=== PATIENT | female | born 1975 | race Caucasian/White ===

== ENCOUNTER 2023-12-26 22:30 | Inpatient (IN) | payer OTHER, SELFPAY ==
[2023-12-26 20:00] VITALS: BP 121/74; PULSE 98; RESP 18; TEMP 36.6; O2SAT 100
[2023-12-27] MEDS: HaloperidoL 5 MG TABLET 10 MG PO ×2 (00:08→20:30)
[2023-12-27] MEDS: Nicotine Polacrilex 2 MG GUM 4 MG BUCCAL ×4 (00:08→19:23)
[2023-12-27] MEDS: busPIRone HCl 10 MG TABLET PO ×3 (00:08→20:30)
[2023-12-27] MEDS: Ibuprofen 400 MG TABLET PO ×4 (00:08→23:54)
[2023-12-27 01:08] VITALS: BMI 32.8
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
[2023-12-27] MEDS: Acetaminophen 325 MG TABLET 650 MG PO ×3 (01:38→20:30)
[2023-12-27] MEDS: traZODone HCL 50 MG TABLET PO ×2 (02:33→23:54)
[2023-12-27 08:00] VITALS: RESP 18
[2023-12-27] MEDS: Aspirin Enteric Coated 81 MG TABLET.DR PO (09:23)
--- NOTE | 2023-12-27 11:13 | HO.PM.IMCN ---
History of Present Illness Data of Consult Service Date: 12/27/23 Primary Care Provider: Sony Physician HPI Reason for consult: Medical management This is a 48-year-old female with pertinent history of CAD, tobacco use disorder, mixed hyperlipidemia who is admitted to inpatient psychiatry for decompensated psychiatric illness. Patient denies chest pain or shortness of breath at the time of my evaluation. She has no new complaints. States that she takes all her medications and is not in a mood to talk about her medical history. Review of Systems Constitutional: Constitutional: Reports no additional constitutional complaints Cardiovascular: Cardiovascular: Reports no additional cardiovascular complaints Respiratory: Respiratory: Reports no additional respiratory complaints Gastrointestinal: Gastrointestinal: Reports no additional gastrointestinal complaints Genitourinary: Genitourinary: Reports no additional female genitourinary complaints [facility] Medical History Mood disorder Tobacco use disorder Coronary artery disease Pertinent family history: No family history of early CAD Social History Household Members: Significant Other Household Members Other:: BOY FRIEND Housing: Apartment Do you presently have visiting nurse or other home services: No Patient Tobacco Use Status: Current everyday Tobacco user Tobacco use type: Cigarette Smoked in Last 30 Days: Yes e-Cigarette/Vaping Use: Never Used Patient Interested in Nicotine Replacement: Yes Patient Given Instructions on How to Stop Smoking: Yes Date Education Initiated: 12/27/23 Second Hand Smoke Exposure: Yes Use of substances other than those prescribed or required for medical reasons: Yes Substance Use Type: Crack/Cocaine Substance Use Frequency: Occasionally Last Used Substance: Unknown Currently Displaying Signs/Symptoms of Drug Intoxication Withdrawal: No Any prior treatment program specific to substance use: No Do you feel safe in your current relationship?: Yes Advance Directives: No Advance Directives Information Provided: No Recently lost weight without trying: No Nutrition Risks: No Nutritional Risk Patient : No : No Poor oral hygiene: No Meds Allergies Allergy/AdvReac Type Severity Reaction Status Date / Time No Known Allergies Allergy Verified 12/26/23 19:16 Active Medications: Current Medications Acetaminophen (Acetaminophen 325 Mg Tablet) 650 mg PO Q6H PRN PRN Reason: Headache/Pain Mild Scale (1-3) Last Admin: 12/27/23 01:38 Dose: 650 mg Al Hydroxide/Mg Hydroxide (Magnesium Hydrox/Alum Hydrox 30 Ml Oral.Susp) 30 ml PO Q6H PRN PRN Reason: Heartburn/Nausea Aspirin (Aspirin Enteric Coated 81 Mg Tablet.) 81 mg PO DAILY [facility] Last Admin: 12/27/23 09:23 Dose: 81 mg Atorvastatin Calcium (Atorvastatin Calcium 80 Mg Tablet) 80 mg PO BEDTIME [facility] Last Admin: 12/27/23 00:04 Dose: Not Given Buspirone HCl (Buspirone Hcl 10 Mg Tablet) 10 mg PO BID [facility] Last Admin: 12/27/23 09:22 Dose: 10 mg Clopidogrel Bisulfate (Clopidogrel Bisulfate 75 Mg Tablet) 75 mg PO DAILY [facility] Last Admin: 12/27/23 09:24 Dose: Not Given Divalproex Sodium (Divalproex Sodium 250 Mg Tablet.) 250 mg PO DAILY [facility] Last Admin: 12/27/23 09:24 Dose: Not Given Haloperidol (Haloperidol 5 Mg Tablet) 10 mg PO BEDTIME [facility] Last Admin: 12/27/23 00:08 Dose: 10 mg Hydroxyzine HCl (Hydroxyzine Hcl 25 Mg Tablet) 25 mg PO Q6H PRN PRN Reason: Anxiety Ibuprofen (Ibuprofen 400 Mg Tablet) 400 mg PO Q6H PRN PRN Reason: Pain, Moderate(Pain Scale 4-6) Last Admin: 12/27/23 09:23 Dose: 400 mg Lorazepam (Lorazepam 0.5 Mg Tablet) 0.5 mg PO DAILY PRN PRN Reason: Anxiety Magnesium Hydroxide (Milk Of Magnesia 30 Ml Oral.Susp) 30 ml PO DAILY PRN PRN Reason: Constipation Nicotine (Nicotine 21 Mg Patch.Td24) 21 mg TRANSDERMA DAILY PRN PRN Reason: nicotine cravings Nicotine Polacrilex (Nicotine Polacrilex 2 Mg Gum) 4 mg BUCCAL Q2H PRN PRN Reason: Nicotine Cravings Last Admin: 12/27/23 02:33 Dose: 4 mg Sertraline HCl (Sertraline Hcl 50 Mg Tablet) 50 mg PO BEDTIME [facility] Last Admin: 12/27/23 00:04 Dose: Not Given Trazodone HCl (Trazodone Hcl 50 Mg Tablet) 50 mg PO BEDTIME MRX1 PRN PRN Reason: Insomnia Last Admin: 12/27/23 02:33 Dose: 50 mg Home Medications ?Medication ?Instructions ?Recorded ?Confirmed ?Last Taken ?Type aspirin 81 mg tablet,delayed 81 mg PO DAILY 12/26/23 12/26/23 Unknown History release atorvastatin 80 mg tablet 80 mg PO BEDTIME 12/26/23 12/26/23 Unknown History atorvastatin 80 mg tablet 80 mg PO DAILY 12/26/23 12/26/23 Unknown History buspirone 10 mg tablet 10 mg PO BID 12/26/23 12/26/23 Unknown History clopidogrel 75 mg tablet 75 mg PO DAILY 12/26/23 12/26/23 Unknown History divalproex 250 mg tablet,delayed 250 mg PO DAILY 12/26/23 12/26/23 Unknown History release haloperidol 10 mg tablet 10 mg PO BEDTIME 12/26/23 12/26/23 Unknown History lorazepam 0.5 mg tablet 0.5 mg PO DAILY PRN Anxiety 12/26/23 12/26/23 Unknown History nicotine (polacrilex) 2 mg gum 2 mg buccal Q1H 12/26/23 12/26/23 Unknown History sertraline 50 mg tablet 50 mg PO BEDTIME 12/26/23 12/26/23 Unknown History trazodone 50 mg tablet 50 mg PO BEDTIME PRN Insomnia 12/26/23 12/26/23 Unknown History Physical Exam Vital Signs and Narrative: Vital Signs: Last Vital Signs Temp 97.8 F 12/26/23 20:00 Pulse 98 12/26/23 20:00 Resp 18 12/27/23 08:00 BP 121/74 12/26/23 20:00 Pulse Ox 100 12/26/23 20:00 O2 Del Method Room Air 12/26/23 20:00 BMI result Body Mass Index 32.8 Middle-aged female lying in bed in no distress Neck supple, no JVD Regular rate and rhythm, S1-S2 heard Regular breath sounds bilaterally, no wheezing or crackles appreciated Abdomen soft nontender, no guarding, no rigidity Patient is awake, alert and oriented to self, place, time and person ; no focal motor deficit Psych: Normal mood No pedal edema Assessment and Plan (1) Mood disorder: Status: Acute Plan This is a 48-year-old female with pertinent history of CAD, tobacco use disorder, mixed hyperlipidemia who is admitted to inpatient psychiatry for decompensated psychiatric illness. #. Coronary artery disease/mixed hyperlipidemia: Continue antiplatelet agent and high-intensity statin Thank you for the consult. Will sign off. Please reconsult if we can help
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
[2023-12-28] MEDS: Nicotine Polacrilex 2 MG GUM 4 MG BUCCAL ×3 (01:23→22:30)
[2023-12-28 07:00] VITALS: BMI 33.4
[2023-12-28] MEDS: Ibuprofen 400 MG TABLET PO ×3 (07:22→22:13)
[2023-12-28] MEDS: LORazepam 0.5 MG TABLET PO (07:22)
[2023-12-28] MEDS: Aspirin Enteric Coated 81 MG TABLET.DR PO (08:33)
[2023-12-28] MEDS: busPIRone HCl 10 MG TABLET PO ×2 (08:33→20:14)
[2023-12-28] MEDS: Divalproex Sodium 250 MG TABLET.DR PO (08:33)
[2023-12-28] MEDS: Clopidogrel Bisulfate 75 MG TABLET PO (08:33)
[2023-12-28] MEDS: hydrOXYzine HCL 25 MG TABLET PO ×2 (08:35→15:39)
[2023-12-28] MEDS: Acetaminophen 325 MG TABLET 650 MG PO ×2 (15:38→22:13)
--- NOTE | 2023-12-28 16:59 | P.PNPSI_ITS ---
Subjective Subjective Date of Service: 12/28/23 Reason For Visit: breif psychotic d/o depression schizoaffective d/o Subjective Notes: Section 12B Healthcare Proxy: No Guardianship: No Medical Problems Affecting Mental Status: No Interim History: Minimal participation. In bed, does not respond when team asks to meet with her to work on her plan of care. Asks for oxycontin for pain. Inconsistent with medication compliance. Currently not engaging in milieu or treatment. Section 12B expires 12/28. Will plan to file Section 7. Medication Compliance: Intermittent Side effects from medications: No Attending Groups: No Review of Systems Acute medical concerns: No Medical Review of Systems: unchanged Review of Systems Review of Systems Yes Unobtainable due to mental status Mental Status Exam Mental Status Exam Narrative: Not wanting to engage with team today. Asking for opiates when awake. Eating, taking fluids Poor attention to ADL's Patient Appearance: Fatigued and Disheveled Patient Orientation: Person and Situation Level of Consciousness: Alert Patient Behavior: Guarded, Talkative, Suspicious and Good Eye Contact Mood Description: Depressed Affect Description: Flat Patient Cognition Impaired: No Ability to Follow Directions: Good Speech Pattern: Spontaneous Speech Memory Description: Episodic Impaired Hallucinations: Auditory Delusions: Paranoid Ideation and Present Perceptual Disturbances: Depersonalization Thought Process: Rumination Thought Content: positive for Circumstantial and positive for Perseveration Depressive Symptoms: Thoughts of /Suicide Judgement: Poor Diagnostics Vital Signs (24Hr): BMI result Body Mass Index 33.4 Medications Medications Current Medications Acetaminophen (Acetaminophen 325 Mg Tablet) 650 mg PO Q6H PRN PRN Reason: Headache/Pain Mild Scale (1-3) Last Admin: 12/28/23 15:38 Dose: 650 mg Al Hydroxide/Mg Hydroxide (Magnesium Hydrox/Alum Hydrox 30 Ml Oral.Susp) 30 ml PO Q6H PRN PRN Reason: Heartburn/Nausea Aspirin (Aspirin Enteric Coated 81 Mg Tablet.) 81 mg PO DAILY [facility] Last Admin: 12/28/23 08:33 Dose: 81 mg Atorvastatin Calcium (Atorvastatin Calcium 80 Mg Tablet) 80 mg PO BEDTIME [facility] Last Admin: 12/27/23 20:07 Dose: Not Given Benzocaine (Throat Lozenge, Medicated Lozenge) 1 lozenge MUCOUS MEM Q2H PRN PRN Reason: Sore Throat Buspirone HCl (Buspirone Hcl 10 Mg Tablet) 10 mg PO BID [facility] Last Admin: 12/28/23 08:33 Dose: 10 mg Clopidogrel Bisulfate (Clopidogrel Bisulfate 75 Mg Tablet) 75 mg PO DAILY [facility] Last Admin: 12/28/23 08:33 Dose: 75 mg Divalproex Sodium (Divalproex Sodium 250 Mg Tablet.Dr) 250 mg PO DAILY [facility] Last Admin: 12/28/23 08:33 Dose: 250 mg Haloperidol (Haloperidol 5 Mg Tablet) 10 mg PO BEDTIME [facility] Last Admin: 12/27/23 20:30 Dose: 10 mg Hydroxyzine HCl (Hydroxyzine Hcl 25 Mg Tablet) 25 mg PO Q6H PRN PRN Reason: Anxiety Last Admin: 12/28/23 15:39 Dose: 25 mg Ibuprofen (Ibuprofen 400 Mg Tablet) 400 mg PO Q6H PRN PRN Reason: Pain, Moderate(Pain Scale 4-6) Last Admin: 12/28/23 15:39 Dose: 400 mg Lorazepam (Lorazepam 0.5 Mg Tablet) 0.5 mg PO DAILY PRN PRN Reason: Anxiety Last Admin: 12/28/23 07:22 Dose: 0.5 mg Magnesium Hydroxide (Milk Of Magnesia 30 Ml Oral.Susp) 30 ml PO DAILY PRN PRN Reason: Constipation Nicotine (Nicotine 21 Mg Patch.Td24) 21 mg TRANSDERMA DAILY PRN PRN Reason: nicotine cravings Nicotine Polacrilex (Nicotine Polacrilex 2 Mg Gum) 4 mg BUCCAL Q2H PRN PRN Reason: Nicotine Cravings Last Admin: 12/28/23 08:36 Dose: 4 mg Olanzapine (Olanzapine 5 Mg Tablet) 5 mg PO Q4H PRN PRN Reason: agitation, psychosis Sertraline HCl (Sertraline Hcl 50 Mg Tablet) 50 mg PO BEDTIME [facility] Last Admin: 12/27/23 20:07 Dose: Not Given Trazodone HCl (Trazodone Hcl 50 Mg Tablet) 50 mg PO BEDTIME MRX1 PRN PRN Reason: Insomnia Last Admin: 12/27/23 23:54 Dose: 50 mg Allergies Allergies Allergy/AdvReac Type Severity Reaction Status Date / Time No Known Allergies Allergy Verified 12/26/23 19:16 Assessment & Plan Assessment & Plan (1) PTSD (post-traumatic stress disorder): Status: Acute Code(s): F43.10 - Post-traumatic stress disorder, unspecified (2) Schizoaffective disorder: Status: Acute Code(s): F25.9 - Schizoaffective disorder, unspecified Plan PTSD, Schizoaffective Disorder 1. Admit, CV, 15 minute checks 2. Encourage treatment compliance 3. Collateral contact 4. Attempt alliance 5. 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 Attempt to re-establish. 12/28/23: Plan to file Section 7 on 12/29/23 as pt is not engaging in any treatment activities and continues decompensated. Reason for continued inpatient stay Substantial Risk for: rapid decompensation Time Spent With Patient Time: Total time managing care of this patient today ____ minutes.
[2023-12-28 19:49] VITALS: BP 127/83; PULSE 95; RESP 18; TEMP 36.4; O2SAT 95
[2023-12-28] MEDS: traZODone HCL 50 MG TABLET PO ×2 (20:14→22:29)
[2023-12-28] MEDS: HaloperidoL 5 MG TABLET 10 MG PO (20:14)
[2023-12-28] MEDS: Throat Lozenge, Medicated LOZENGE 1 LOZENGE MUCOUS MEM (21:59)
[2023-12-29] MEDS: Nicotine Polacrilex 2 MG GUM 4 MG BUCCAL ×4 (00:36→18:44)
[2023-12-29] MEDS: OLANZapine 5 MG TABLET PO (01:16)
[2023-12-29] MEDS: Aspirin Enteric Coated 81 MG TABLET.DR PO (08:27)
[2023-12-29] MEDS: busPIRone HCl 10 MG TABLET PO ×2 (08:27→20:55)
[2023-12-29] MEDS: Divalproex Sodium 250 MG TABLET.DR PO (08:27)
[2023-12-29] MEDS: Clopidogrel Bisulfate 75 MG TABLET PO (08:28)
[2023-12-29] MEDS: Ibuprofen 400 MG TABLET PO ×2 (15:47→20:55)
--- NOTE | 2023-12-29 16:43 | HO.PSYCHPN ---
Subjective Subjective Date of Service: 12/29/23 Reason For Visit: breif psychotic d/o depression schizoaffective d/o Subjective Notes: Section 7 Healthcare Proxy: No Guardianship: No Medical Problems Affecting Mental Status: No Interim History: Section [address] 01/04/24. Pt did not respond when discussed with her. In bed, eyes closed. In bed, getting up for prn medicine and some meals. Refusing medications. Refused diagnostics. Refusing to actively engage. Team have attempted to contact partner without success. Medication Compliance: Intermittent (prn pain meds mostly) Side effects from medications: No Attending Groups: No Review of Systems Acute medical concerns: No Medical Review of Systems: unchanged Review of Systems Review of Systems Yes Unobtainable due to mental status Mental Status Exam Mental Status Exam Narrative: Not wanting to engage with team today. Asking for opiates when awake. Eating, taking fluids Poor attention to ADL's Patient Appearance: Fatigued and Disheveled Patient Orientation: Person and Situation Level of Consciousness: Alert Patient Behavior: Guarded, Talkative, Suspicious and Good Eye Contact Mood Description: Depressed Affect Description: Flat Patient Cognition Impaired: No Ability to Follow Directions: Good Speech Pattern: Spontaneous Speech Memory Description: Episodic Impaired Hallucinations: Auditory Delusions: Paranoid Ideation and Present Perceptual Disturbances: Depersonalization Thought Process: Rumination Thought Content: positive for Circumstantial and positive for Perseveration Depressive Symptoms: Thoughts of /Suicide Judgement: Poor Diagnostics Vital Signs (24Hr): Vital Signs - 24 hr 12/28/23 19:49 Temperature 97.5 F Pulse Rate 95 Respiratory Rate 18 Blood Pressure 127/83 Pulse Oximetry 95 Oxygen Delivery Method Room Air BMI result Body Mass Index 33.4 Medications Medications Current Medications Acetaminophen (Acetaminophen 325 Mg Tablet) 650 mg PO Q6H PRN PRN Reason: Headache/Pain Mild Scale (1-3) Last Admin: 12/28/23 22:13 Dose: 650 mg Al Hydroxide/Mg Hydroxide (Magnesium Hydrox/Alum Hydrox 30 Ml Oral.Susp) 30 ml PO Q6H PRN PRN Reason: Heartburn/Nausea Aspirin (Aspirin Enteric Coated 81 Mg Tablet.Dr) 81 mg PO DAILY [facility] Last Admin: 12/29/23 08:27 Dose: 81 mg Atorvastatin Calcium (Atorvastatin Calcium 80 Mg Tablet) 80 mg PO BEDTIME [facility] Last Admin: 12/28/23 21:03 Dose: Not Given Benzocaine (Throat Lozenge, Medicated Lozenge) 1 lozenge MUCOUS MEM Q2H PRN PRN Reason: Sore Throat Last Admin: 12/28/23 21:59 Dose: 1 lozenge Buspirone HCl (Buspirone Hcl 10 Mg Tablet) 10 mg PO BID [facility] Last Admin: 12/29/23 08:27 Dose: 10 mg Clopidogrel Bisulfate (Clopidogrel Bisulfate 75 Mg Tablet) 75 mg PO DAILY [facility] Last Admin: 12/29/23 08:28 Dose: 75 mg Divalproex Sodium (Divalproex Sodium 250 Mg Tablet.Dr) 250 mg PO DAILY [facility] Last Admin: 12/29/23 08:27 Dose: 250 mg Haloperidol (Haloperidol 5 Mg Tablet) 10 mg PO BEDTIME [facility] Last Admin: 12/28/23 20:14 Dose: 10 mg Hydroxyzine HCl (Hydroxyzine Hcl 25 Mg Tablet) 25 mg PO Q6H PRN PRN Reason: Anxiety Last Admin: 12/28/23 15:39 Dose: 25 mg Ibuprofen (Ibuprofen 400 Mg Tablet) 400 mg PO Q6H PRN PRN Reason: Pain, Moderate(Pain Scale 4-6) Last Admin: 12/29/23 15:47 Dose: 400 mg Lorazepam (Lorazepam 0.5 Mg Tablet) 0.5 mg PO DAILY PRN PRN Reason: Anxiety Last Admin: 12/28/23 07:22 Dose: 0.5 mg Magnesium Hydroxide (Milk Of Magnesia 30 Ml Oral.Susp) 30 ml PO DAILY PRN PRN Reason: Constipation Nicotine (Nicotine 21 Mg Patch.Td24) 21 mg TRANSDERMA DAILY PRN PRN Reason: nicotine cravings Nicotine Polacrilex (Nicotine Polacrilex 2 Mg Gum) 4 mg BUCCAL Q2H PRN PRN Reason: Nicotine Cravings Last Admin: 12/29/23 08:43 Dose: 4 mg Olanzapine (Olanzapine 5 Mg Tablet) 5 mg PO Q4H PRN PRN Reason: agitation, psychosis Last Admin: 12/29/23 01:16 Dose: 5 mg Sertraline HCl (Sertraline Hcl 50 Mg Tablet) 50 mg PO BEDTIME [facility] Last Admin: 12/28/23 21:03 Dose: Not Given Trazodone HCl (Trazodone Hcl 50 Mg Tablet) 50 mg PO BEDTIME MRX1 PRN PRN Reason: Insomnia Last Admin: 12/28/23 22:29 Dose: 50 mg Allergies Allergies Allergy/AdvReac Type Severity Reaction Status Date / Time No Known Allergies Allergy Verified 12/26/23 19:16 Assessment & Plan Assessment & Plan (1) PTSD (post-traumatic stress disorder): Status: Acute Code(s): F43.10 - Post-traumatic stress disorder, unspecified (2) Schizoaffective disorder: Status: Acute Code(s): F25.9 - Schizoaffective disorder, unspecified Plan PTSD, Schizoaffective Disorder 1. Admit, CV, 15 minute checks 2. Encourage treatment compliance 3. Collateral contact 4. Attempt alliance 5. 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 Attempt to re-establish. 12/28/23: Plan to file Section 7 on 12/29/23 as pt is not engaging in any treatment activities and continues decompensated. 12/29/23: Section 7. Court 01/04/24. Encouarge participation in care. Reason for continued inpatient stay Substantial Risk for: rapid decompensation Time Spent With Patient Time: Total time managing care of this patient today ____ minutes.
[2023-12-29] MEDS: Acetaminophen 325 MG TABLET 650 MG PO (18:44)
[2023-12-29] MEDS: traZODone HCL 50 MG TABLET PO (20:55)
[2023-12-29] MEDS: HaloperidoL 5 MG TABLET 10 MG PO (20:55)
[2023-12-30] MEDS: Acetaminophen 325 MG TABLET 650 MG PO ×3 (00:01→20:14)
[2023-12-30] MEDS: Nicotine Polacrilex Lozenge 4 MG LOZENGE BUCCAL ×8 (00:01→23:55)
[2023-12-30] MEDS: traZODone HCL 50 MG TABLET PO ×3 (01:22→21:52)
[2023-12-30] MEDS: Ibuprofen 400 MG TABLET PO ×3 (03:20→19:00)
[2023-12-30] MEDS: Aspirin Enteric Coated 81 MG TABLET.DR PO (10:02)
[2023-12-30] MEDS: Clopidogrel Bisulfate 75 MG TABLET PO (10:03)
[2023-12-30] MEDS: Divalproex Sodium 250 MG TABLET.DR PO (10:03)
[2023-12-30] MEDS: busPIRone HCl 10 MG TABLET PO ×2 (10:03→20:14)
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
[2023-12-30] MEDS: LORazepam 0.5 MG TABLET PO (13:13)
[2023-12-30 19:56] VITALS: BP 121/91; PULSE 94; RESP 16; TEMP 36.3; O2SAT 98
[2023-12-30] MEDS: HaloperidoL 5 MG TABLET 10 MG PO (20:14)
[2023-12-30] MEDS: hydrOXYzine HCL 25 MG TABLET PO (23:54)
[2023-12-31] MEDS: Ibuprofen 400 MG TABLET PO ×3 (01:41→18:13)
[2023-12-31] MEDS: Divalproex Sodium 250 MG TABLET.DR PO (09:30)
[2023-12-31] MEDS: busPIRone HCl 10 MG TABLET PO ×2 (09:31→21:11)
[2023-12-31] MEDS: Aspirin Enteric Coated 81 MG TABLET.DR PO (09:31)
[2023-12-31] MEDS: Clopidogrel Bisulfate 75 MG TABLET PO (09:31)
[2023-12-31] MEDS: Nicotine 21 MG PATCH.TD24 TRANSDERMA (09:34)
[2023-12-31] MEDS: Nicotine Polacrilex Lozenge 4 MG LOZENGE BUCCAL ×6 (09:35→23:14)
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
[2023-12-31] MEDS: Acetaminophen 325 MG TABLET 650 MG PO ×2 (15:42→22:11)
[2023-12-31] MEDS: LORazepam 0.5 MG TABLET PO (19:10)
[2023-12-31 20:00] VITALS: BP 137/71; PULSE 98; TEMP 36.2; O2SAT 98
[2023-12-31] MEDS: traZODone HCL 50 MG TABLET PO ×2 (21:09→22:12)
[2023-12-31] MEDS: Melatonin 3 MG TABLET PO (21:09)
[2023-12-31] MEDS: Sertraline HCL 50 MG TABLET PO (21:10)
[2023-12-31] MEDS: HaloperidoL 5 MG TABLET 10 MG PO (21:10)
[2024-01-01] MEDS: Nicotine Polacrilex Lozenge 4 MG LOZENGE BUCCAL ×7 (08:12→23:56)
[2024-01-01] MEDS: Aspirin Enteric Coated 81 MG TABLET.DR PO (08:13)
[2024-01-01] MEDS: Acetaminophen 325 MG TABLET 650 MG PO ×3 (08:13→23:59)
[2024-01-01] MEDS: busPIRone HCl 10 MG TABLET PO ×2 (08:13→21:27)
[2024-01-01] MEDS: Divalproex Sodium 250 MG TABLET.DR PO (08:13)
--- NOTE | 2024-01-01 14:56 | P.PNPSI_ITS ---
Subjective Subjective Date of Service: 01/01/24 Reason For Visit: breif psychotic d/o depression schizoaffective d/o Subjective Notes: Section 7 Interim History: Reviewed with Dr. Anton. Section [address] 01/04/24. Keeping to self, laying in bed. Poor eye contact. guarded. responding with one word answers. Pt stated, I'm fine. I'm not depressed or anxious . difficult to engage. Medication Compliance: Yes Side effects from medications: No Attending Groups: No Review of Systems Review of Systems Yes Unobtainable due to mental status Mental Status Exam Mental Status Exam Patient Appearance: Fatigued and Disheveled Patient Orientation: Person and Situation Level of Consciousness: Alert Patient Behavior: Guarded and Poor Eye Contact Mood Description: Depressed Affect Description: Flat Patient Cognition Impaired: No Ability to Follow Directions: Good Speech Pattern: Spontaneous Speech Diagnostics Vital Signs (24Hr): Vital Signs - 24 hr 12/31/23 20:00 Temperature 97.2 F Pulse Rate 98 Blood Pressure 137/71 Pulse Oximetry 98 Oxygen Delivery Method Room Air BMI result Body Mass Index 33.4 Medications Medications Current Medications Acetaminophen (Acetaminophen 325 Mg Tablet) 650 mg PO Q6H PRN PRN Reason: Headache/Pain Mild Scale (1-3) Last Admin: 01/01/24 13:54 Dose: 650 mg Al Hydroxide/Mg Hydroxide (Magnesium Hydrox/Alum Hydrox 30 Ml Oral.Susp) 30 ml PO Q6H PRN PRN Reason: Heartburn/Nausea Aspirin (Aspirin Enteric Coated 81 Mg Tablet.) 81 mg PO DAILY [facility] Last Admin: 01/01/24 08:13 Dose: 81 mg Atorvastatin Calcium (Atorvastatin Calcium 80 Mg Tablet) 80 mg PO BEDTIME [facility] Last Admin: 12/31/23 21:10 Dose: Not Given Benzocaine (Throat Lozenge, Medicated Lozenge) 1 lozenge MUCOUS MEM Q2H PRN PRN Reason: Sore Throat Last Admin: 12/28/23 21:59 Dose: 1 lozenge Buspirone HCl (Buspirone Hcl 10 Mg Tablet) 10 mg PO BID [facility] Last Admin: 01/01/24 08:13 Dose: 10 mg Clopidogrel Bisulfate (Clopidogrel Bisulfate 75 Mg Tablet) 75 mg PO DAILY [facility] Last Admin: 01/01/24 08:15 Dose: Not Given Divalproex Sodium (Divalproex Sodium 250 Mg Tablet.) 250 mg PO DAILY [facility] Last Admin: 01/01/24 08:13 Dose: 250 mg Haloperidol (Haloperidol 5 Mg Tablet) 10 mg PO BEDTIME [facility] Last Admin: 12/31/23 21:10 Dose: 10 mg Hydroxyzine HCl (Hydroxyzine Hcl 25 Mg Tablet) 25 mg PO Q6H PRN PRN Reason: Anxiety Last Admin: 12/30/23 23:54 Dose: 25 mg Ibuprofen (Ibuprofen 400 Mg Tablet) 400 mg PO Q6H PRN PRN Reason: Pain, Moderate(Pain Scale 4-6) Last Admin: 01/01/24 12:17 Dose: 400 mg Lorazepam (Lorazepam 0.5 Mg Tablet) 0.5 mg PO DAILY PRN PRN Reason: Anxiety Last Admin: 12/31/23 19:10 Dose: 0.5 mg Magnesium Hydroxide (Milk Of Magnesia 30 Ml Oral.Susp) 30 ml PO DAILY PRN PRN Reason: Constipation Melatonin (Melatonin 3 Mg Tablet) 3 mg PO BEDTIME PRN PRN Reason: insomnia Last Admin: 12/31/23 21:09 Dose: 3 mg Nicotine (Nicotine 21 Mg Patch.Td24) 21 mg TRANSDERMA DAILY PRN PRN Reason: nicotine cravings Last Admin: 12/31/23 09:34 Dose: 21 mg Nicotine Polacrilex (Nicotine Polacrilex Lozenge 4 Mg Lozenge) 4 mg BUCCAL Q2H PRN PRN Reason: Nicotine cravings Last Admin: 01/01/24 13:54 Dose: 4 mg Olanzapine (Olanzapine 5 Mg Tablet) 5 mg PO Q4H PRN PRN Reason: agitation, psychosis Last Admin: 12/29/23 01:16 Dose: 5 mg Sertraline HCl (Sertraline Hcl 50 Mg Tablet) 50 mg PO BEDTIME [facility] Last Admin: 12/31/23 21:10 Dose: 50 mg Trazodone HCl (Trazodone Hcl 50 Mg Tablet) 50 mg PO BEDTIME MRX1 PRN PRN Reason: Insomnia Last Admin: 12/31/23 22:12 Dose: 50 mg Allergies Allergies Allergy/AdvReac Type Severity Reaction Status Date / Time No Known Allergies Allergy Verified 12/26/23 19:16 Assessment & Plan Assessment & Plan (1) PTSD (post-traumatic stress disorder): Status: Acute Code(s): F43.10 - Post-traumatic stress disorder, unspecified (2) Schizoaffective disorder: Status: Acute Code(s): F25.9 - Schizoaffective disorder, unspecified Plan PTSD, Schizoaffective Disorder 1. Admit, CV, 15 minute checks 2. Encourage treatment compliance 3. Collateral contact 4. Attempt alliance 5. 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 Attempt to re-establish. 12/28/23: Plan to file Section 7 on 12/29/23 as pt is not engaging in any treatment activities and continues decompensated. 12/29/23: Section 7. Court 01/04/24. Encouarge participation in care. 12/29: continue current management and treatment plan. 12/30: continue current management and treatment plan. 12/31: Keeping to self, laying in bed. Poor eye contact. guarded. responding with one word answers. Pt stated, I'm fine. I'm not depressed or anxious . difficult to engage. Patient educated on: medication risk/benefits Reason for continued inpatient stay Substantial Risk for: med/psych decompensation Time Spent With Patient Time: Total time managing care of this patient today _20___ minutes.
[2024-01-01] MEDS: Ibuprofen 400 MG TABLET PO (15:26)
[2024-01-01] MEDS: LORazepam 0.5 MG TABLET PO (18:24)
[2024-01-01 20:00] VITALS: BP 133/74; PULSE 92; RESP 16; TEMP 36.2; O2SAT 97
[2024-01-01] MEDS: HaloperidoL 5 MG TABLET 10 MG PO (21:27)
[2024-01-01] MEDS: Sertraline HCL 50 MG TABLET PO (21:27)
[2024-01-01] MEDS: traZODone HCL 50 MG TABLET PO ×2 (21:27→23:59)
[2024-01-01] MEDS: Atorvastatin Calcium 80 MG TABLET PO (21:27)
[2024-01-01] MEDS: Melatonin 3 MG TABLET PO (21:28)
[2024-01-01] MEDS: hydrOXYzine HCL 25 MG TABLET PO (23:59)
[2024-01-02 08:17] VITALS: BP 105/58; PULSE 64; RESP 17; TEMP 36.4; O2SAT 99
[2024-01-02] MEDS: hydrOXYzine HCL 25 MG TABLET PO (09:15)
[2024-01-02] MEDS: Ibuprofen 400 MG TABLET PO (09:16)
[2024-01-02] MEDS: Nicotine Polacrilex Lozenge 4 MG LOZENGE BUCCAL ×6 (09:18→22:05)
[2024-01-02] MEDS: Milk of Magnesia 30 ML ORAL.SUSP PO (09:19)
--- NOTE | 2024-01-02 10:48 | HO.PSYCHPN ---
Subjective Subjective Date of Service: 01/02/24 Reason For Visit: breif psychotic d/o depression schizoaffective d/o Subjective Notes: Section 7 Interim History: Reviewed with Dr. Blake. Pt continues similar to yesterday's presentation. Keeping to self, laying in bed. Poor eye contact. guarded. responding with one word answers and grunts. difficult to engage. refused Depakote this morning. Medication Compliance: Intermittent Attending Groups: No Review of Systems Review of Systems Yes Unobtainable due to mental status Mental Status Exam Mental Status Exam Patient Appearance: Fatigued and Disheveled Patient Orientation: Person and Situation Level of Consciousness: Alert Patient Behavior: Guarded and Poor Eye Contact Mood Description: Withdrawn and Depressed Affect Description: Flat Patient Cognition Impaired: No Ability to Follow Directions: Good Speech Pattern: Spontaneous Speech Diagnostics Vital Signs (24Hr): Vital Signs - 24 hr 01/01/24 20:00 01/02/24 08:17 Temperature 97.1 F 97.5 F Pulse Rate 92 64 Respiratory Rate 16 17 Blood Pressure 133/74 105/58 L Pulse Oximetry 97 99 Oxygen Delivery Method Room Air Room Air BMI result Body Mass Index 33.4 Medications Medications Current Medications Acetaminophen (Acetaminophen 325 Mg Tablet) 650 mg PO Q6H PRN PRN Reason: Headache/Pain Mild Scale (1-3) Last Admin: 01/01/24 23:59 Dose: 650 mg Al Hydroxide/Mg Hydroxide (Magnesium Hydrox/Alum Hydrox 30 Ml Oral.Susp) 30 ml PO Q6H PRN PRN Reason: Heartburn/Nausea Aspirin (Aspirin Enteric Coated 81 Mg Tablet.) 81 mg PO DAILY [facility] Last Admin: 01/02/24 09:13 Dose: Not Given Atorvastatin Calcium (Atorvastatin Calcium 80 Mg Tablet) 80 mg PO BEDTIME [facility] Last Admin: 01/01/24 21:27 Dose: 80 mg Benzocaine (Throat Lozenge, Medicated Lozenge) 1 lozenge MUCOUS MEM Q2H PRN PRN Reason: Sore Throat Last Admin: 12/28/23 21:59 Dose: 1 lozenge Buspirone HCl (Buspirone Hcl 10 Mg Tablet) 10 mg PO BID [facility] Last Admin: 01/02/24 09:14 Dose: Not Given Clopidogrel Bisulfate (Clopidogrel Bisulfate 75 Mg Tablet) 75 mg PO DAILY [facility] Last Admin: 01/02/24 09:14 Dose: Not Given Divalproex Sodium (Divalproex Sodium 250 Mg Tablet.Dr) 250 mg PO DAILY [facility] Last Admin: 01/02/24 09:14 Dose: Not Given Haloperidol (Haloperidol 5 Mg Tablet) 10 mg PO BEDTIME [facility] Last Admin: 01/01/24 21:27 Dose: 10 mg Hydroxyzine HCl (Hydroxyzine Hcl 25 Mg Tablet) 25 mg PO Q6H PRN PRN Reason: Anxiety Last Admin: 01/02/24 09:15 Dose: 25 mg Ibuprofen (Ibuprofen 400 Mg Tablet) 400 mg PO Q6H PRN PRN Reason: Pain, Moderate(Pain Scale 4-6) Last Admin: 01/02/24 09:16 Dose: 400 mg Lorazepam (Lorazepam 0.5 Mg Tablet) 0.5 mg PO DAILY PRN PRN Reason: Anxiety Last Admin: 01/01/24 18:24 Dose: 0.5 mg Magnesium Hydroxide (Milk Of Magnesia 30 Ml Oral.Susp) 30 ml PO DAILY PRN PRN Reason: Constipation Last Admin: 01/02/24 09:19 Dose: 30 ml Melatonin (Melatonin 3 Mg Tablet) 3 mg PO BEDTIME PRN PRN Reason: insomnia Last Admin: 01/01/24 21:28 Dose: 3 mg Nicotine (Nicotine 21 Mg Patch.Td24) 21 mg TRANSDERMA DAILY PRN PRN Reason: nicotine cravings Last Admin: 12/31/23 09:34 Dose: 21 mg Nicotine Polacrilex (Nicotine Polacrilex Lozenge 4 Mg Lozenge) 4 mg BUCCAL Q2H PRN PRN Reason: Nicotine cravings Last Admin: 01/02/24 09:18 Dose: 4 mg Olanzapine (Olanzapine 5 Mg Tablet) 5 mg PO Q4H PRN PRN Reason: agitation, psychosis Last Admin: 12/29/23 01:16 Dose: 5 mg Sertraline HCl (Sertraline Hcl 50 Mg Tablet) 50 mg PO BEDTIME [facility] Last Admin: 01/01/24 21:27 Dose: 50 mg Trazodone HCl (Trazodone Hcl 50 Mg Tablet) 50 mg PO BEDTIME MRX1 PRN PRN Reason: Insomnia Last Admin: 01/01/24 23:59 Dose: 50 mg Allergies Allergies Allergy/AdvReac Type Severity Reaction Status Date / Time No Known Allergies Allergy Verified 12/26/23 19:16 Assessment & Plan Assessment & Plan (1) PTSD (post-traumatic stress disorder): Status: Acute Code(s): F43.10 - Post-traumatic stress disorder, unspecified (2) Schizoaffective disorder: Status: Acute Code(s): F25.9 - Schizoaffective disorder, unspecified Plan PTSD, Schizoaffective Disorder 1. Admit, CV, 15 minute checks 2. Encourage treatment compliance 3. Collateral contact 4. Attempt alliance 5. 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 Attempt to re-establish. 12/28/23: Plan to file Section 7 on 12/29/23 as pt is not engaging in any treatment activities and continues decompensated. 12/29/23: Section 7. Court 01/04/24. Encouarge participation in care. 12/29: continue current management and treatment plan. 12/30: continue current management and treatment plan. 12/31: Keeping to self, laying in bed. Poor eye contact. guarded. responding with one word answers. Pt stated, I'm fine. I'm not depressed or anxious . difficult to engage. 01/01: Pt continues similar to yesterday's presentation. Keeping to self, laying in bed. Poor eye contact. guarded. responding with one word answers and grunts. difficult to engage. refused Depakote this morning. Patient educated on: medication risk/benefits Reason for continued inpatient stay Substantial Risk for: med/psych decompensation Time Spent With Patient Time: Total time managing care of this patient today _20___ minutes.
[2024-01-02] MEDS: Acetaminophen 325 MG TABLET 650 MG PO (18:07)
[2024-01-02] MEDS: LORazepam 0.5 MG TABLET PO (19:55)
[2024-01-02 20:00] VITALS: BP 113/80; PULSE 89; RESP 17; TEMP 36.2; O2SAT 97
[2024-01-02] MEDS: busPIRone HCl 10 MG TABLET PO (21:07)
[2024-01-02] MEDS: traZODone HCL 50 MG TABLET PO ×2 (21:09→23:20)
[2024-01-03] MEDS: Nicotine Polacrilex Lozenge 4 MG LOZENGE BUCCAL ×7 (07:55→22:41)
[2024-01-03] MEDS: Clopidogrel Bisulfate 75 MG TABLET PO (09:30)
[2024-01-03] MEDS: Aspirin Enteric Coated 81 MG TABLET.DR PO (09:30)
[2024-01-03] MEDS: Acetaminophen 325 MG TABLET 650 MG PO ×2 (09:31→16:04)
[2024-01-03] MEDS: busPIRone HCl 10 MG TABLET PO ×2 (09:31→20:46)
[2024-01-03] MEDS: Divalproex Sodium 250 MG TABLET.DR PO (09:31)
[2024-01-03] MEDS: Ibuprofen 400 MG TABLET PO ×2 (11:35→18:23)
--- NOTE | 2024-01-03 16:38 | P.PNPSI_ITS ---
Subjective Subjective Date of Service: 01/03/24 Reason For Visit: breif psychotic d/o depression schizoaffective d/o Subjective Notes: Section 7 Healthcare Proxy: No Guardianship: No Medical Problems Affecting Mental Status: No Interim History: Pt more visable on the unit today, talking with family on the telephone. Reports she feels well, prepared to leave, asks that Sertraline be discontinued as it promotes racing of thoughts. Team has talked with partner who reports pt is back to baseline and he would like her to return home. He does not want us to pursue a request for treatment with the court as he believes she has recompensated. He tells team he has cancer and both he and pt care for each other. Pursuit of commitment he does not feel is needed. Pt agrees, I needed to rest I think . We will plan discharge for 01/03 as both agree and pt is able to clearly contract for safety. Medication Compliance: Intermittent Side effects from medications: Yes (sertraline pt feels causes racing of thought-will discontinue) Attending Groups: No Review of Systems Acute medical concerns: No Medical Review of Systems: unchanged Review of Systems Review of Systems Yes all other systems are reviewed and are negative Mental Status Exam Mental Status Exam Patient Appearance: Appropriate Patient Orientation: Person, Place and Situation Level of Consciousness: Alert Patient Behavior: Talkative Mood Description: Constricted Affect Description: Constricted Patient Cognition Impaired: No Ability to Follow Directions: Fair Speech Pattern: Spontaneous Speech Memory Description: Episodic Impaired Hallucinations: None Delusions: Not Present Thought Process: Distracted Thought Content: positive for Perseveration, positive for Suicidal Ideation (denies) and positive for Homicidal Ideation (denies) Depressive Symptoms: Sleeping More Than Usual and Thoughts of /Suicide (denies) Judgement: Fair Diagnostics Vital Signs (24Hr): Vital Signs - 24 hr 01/02/24 20:00 Temperature 97.2 F Pulse Rate 89 Respiratory Rate 17 Blood Pressure 113/80 Pulse Oximetry 97 Oxygen Delivery Method Room Air BMI result Body Mass Index 33.4 Medications Medications Current Medications Acetaminophen (Acetaminophen 325 Mg Tablet) 650 mg PO Q6H PRN PRN Reason: Headache/Pain Mild Scale (1-3) Last Admin: 01/03/24 16:04 Dose: 650 mg Al Hydroxide/Mg Hydroxide (Magnesium Hydrox/Alum Hydrox 30 Ml Oral.Susp) 30 ml PO Q6H PRN PRN Reason: Heartburn/Nausea Aspirin (Aspirin Enteric Coated 81 Mg Tablet.) 81 mg PO DAILY [facility] Last Admin: 01/03/24 09:30 Dose: 81 mg Atorvastatin Calcium (Atorvastatin Calcium 80 Mg Tablet) 80 mg PO BEDTIME [facility] Last Admin: 01/03/24 00:43 Dose: Not Given Benzocaine (Throat Lozenge, Medicated Lozenge) 1 lozenge MUCOUS MEM Q2H PRN PRN Reason: Sore Throat Last Admin: 12/28/23 21:59 Dose: 1 lozenge Buspirone HCl (Buspirone Hcl 10 Mg Tablet) 10 mg PO BID [facility] Last Admin: 01/03/24 09:31 Dose: 10 mg Clopidogrel Bisulfate (Clopidogrel Bisulfate 75 Mg Tablet) 75 mg PO DAILY [facility] Last Admin: 01/03/24 09:30 Dose: 75 mg Divalproex Sodium (Divalproex Sodium 250 Mg Tablet.) 250 mg PO DAILY [facility] Last Admin: 01/03/24 09:31 Dose: 250 mg Haloperidol (Haloperidol 5 Mg Tablet) 10 mg PO BEDTIME [facility] Last Admin: 01/03/24 00:43 Dose: Not Given Hydroxyzine HCl (Hydroxyzine Hcl 25 Mg Tablet) 25 mg PO Q6H PRN PRN Reason: Anxiety Last Admin: 01/02/24 09:15 Dose: 25 mg Ibuprofen (Ibuprofen 400 Mg Tablet) 400 mg PO Q6H PRN PRN Reason: Pain, Moderate(Pain Scale 4-6) Last Admin: 01/03/24 11:35 Dose: 400 mg Lorazepam (Lorazepam 0.5 Mg Tablet) 0.5 mg PO DAILY PRN PRN Reason: Anxiety Last Admin: 01/02/24 19:55 Dose: 0.5 mg Magnesium Hydroxide (Milk Of Magnesia 30 Ml Oral.Susp) 30 ml PO DAILY PRN PRN Reason: Constipation Last Admin: 01/02/24 09:19 Dose: 30 ml Melatonin (Melatonin 3 Mg Tablet) 3 mg PO BEDTIME PRN PRN Reason: insomnia Last Admin: 01/01/24 21:28 Dose: 3 mg Nicotine (Nicotine 21 Mg Patch.Td24) 21 mg TRANSDERMA DAILY PRN PRN Reason: nicotine cravings Last Admin: 12/31/23 09:34 Dose: 21 mg Nicotine Polacrilex (Nicotine Polacrilex Lozenge 4 Mg Lozenge) 4 mg BUCCAL Q2H PRN PRN Reason: Nicotine cravings Last Admin: 01/03/24 14:48 Dose: 4 mg Olanzapine (Olanzapine 5 Mg Tablet) 5 mg PO Q4H PRN PRN Reason: agitation, psychosis Last Admin: 12/29/23 01:16 Dose: 5 mg Sertraline HCl (Sertraline Hcl 50 Mg Tablet) 50 mg PO BEDTIME [facility] Last Admin: 01/03/24 00:43 Dose: Not Given Trazodone HCl (Trazodone Hcl 50 Mg Tablet) 50 mg PO BEDTIME MRX1 PRN PRN Reason: Insomnia Last Admin: 01/02/24 23:20 Dose: 50 mg Allergies Allergies Allergy/AdvReac Type Severity Reaction Status Date / Time No Known Allergies Allergy Verified 12/26/23 19:16 Assessment & Plan Assessment & Plan (1) PTSD (post-traumatic stress disorder): Status: Acute Code(s): F43.10 - Post-traumatic stress disorder, unspecified (2) Schizoaffective disorder: Status: Acute Code(s): F25.9 - Schizoaffective disorder, unspecified Plan PTSD, Schizoaffective Disorder 1. Admit, CV, 15 minute checks 2. Encourage treatment compliance 3. Collateral contact 4. Attempt alliance 5. Pt has been non compliant with regime [employer]. 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 Attempt to re-establish. 12/28/23: Plan to file Section 7 on 12/29/23 as pt is not engaging in any treatment activities and continues decompensated. 12/29/23: Section 7. Court 01/04/24. Encouarge participation in care. 12/29: continue current management and treatment plan. 12/30: continue current management and treatment plan. 12/31: Keeping to self, laying in bed. Poor eye contact. guarded. responding with one word answers. Pt stated, I'm fine. I'm not depressed or anxious . difficult to engage. 01/01: Pt continues similar to yesterday's presentation. Keeping to self, laying in bed. Poor eye contact. guarded. responding with one word answers and grunts. difficult to engage. refused Depakote this morning. 01/02: Pt is up, talking on the phone. She and her partner are hoping for discharge 01/03. Partner reports she is back to baseline and does not believe we need to approach the court to continue treatment. Reason for continued inpatient stay Substantial Risk for: rapid decompensation Time Spent With Patient Time: Total time managing care of this patient today ____ minutes.
[2024-01-03] MEDS: Milk of Magnesia 30 ML ORAL.SUSP PO (19:32)
[2024-01-03] MEDS: Throat Lozenge, Medicated LOZENGE 1 LOZENGE MUCOUS MEM ×2 (19:33→21:52)
[2024-01-03] MEDS: traZODone HCL 50 MG TABLET PO ×2 (20:46→21:52)
[2024-01-03] MEDS: hydrOXYzine HCL 25 MG TABLET PO (20:46)
[2024-01-03] MEDS: HaloperidoL 5 MG TABLET 10 MG PO (20:47)
[2024-01-03] MEDS: LORazepam 0.5 MG TABLET PO (23:28)
[2024-01-04] MEDS: Ibuprofen 400 MG TABLET PO ×2 (00:11→11:37)
[2024-01-04] MEDS: Acetaminophen 325 MG TABLET 650 MG PO ×2 (00:12→08:57)
[2024-01-04 07:52] VITALS: RESP 18
[2024-01-04] MEDS: busPIRone HCl 10 MG TABLET PO (08:48)
[2024-01-04] MEDS: Divalproex Sodium 250 MG TABLET.DR PO (08:48)
[2024-01-04] MEDS: Clopidogrel Bisulfate 75 MG TABLET PO (08:49)
[2024-01-04] MEDS: Aspirin Enteric Coated 81 MG TABLET.DR PO (08:49)
[2024-01-04] MEDS: Nicotine Polacrilex Lozenge 4 MG LOZENGE BUCCAL ×2 (08:57→11:37)
--- NOTE | 2024-01-04 15:38 | PM.PSYDC ---
DS: Providers Provider Date of Service: 01/04/24 Date of admission: 12/26/23 22:30 Date of discharge: 01/04/24 Primary care physician: Sony Physician Admitting clinician: Amanda Zayas Attending physician on admission: Eliseo Anton Consults: 12/27/23 09:14 Consult to Hospitalist Routine Comment: Consulting Provider: Hospitalist Reason For Exam: transfer pt Attending physician on discharge: Eliseo Anton Discharging clinician: Amanda Zayas DS: Diagnosis Discharge Diagnosis (1) PTSD (post-traumatic stress disorder): Status: Acute (2) Schizoaffective disorder: Status: Acute DS: Medications Discharge Medications Home Medications: Home Medications ?Medication ?Instructions ?Recorded ?Confirmed aspirin 81 mg tablet,delayed 81 mg PO DAILY 12/26/23 12/26/23 release atorvastatin 80 mg tablet 80 mg PO DAILY 12/26/23 12/26/23 clopidogrel 75 mg tablet 75 mg PO DAILY 12/26/23 12/26/23 lorazepam 0.5 mg tablet 0.5 mg PO DAILY PRN Anxiety 12/26/23 12/26/23 Previous Rx's ?Medication ?Instructions ?Recorded acetaminophen 325 mg tablet 650 mg (2 x 325 mg) PO Q6H PRN 01/03/24 Headache/Pain Mild Scale (1-3) #0 tabs buspirone 10 mg tablet 10 mg PO BID #60 tabs 01/03/24 divalproex 250 mg tablet,delayed 250 mg PO DAILY #30 tabs 01/03/24 release haloperidol 10 mg tablet 10 mg PO BEDTIME #30 tabs 01/03/24 ibuprofen 400 mg tablet 400 mg PO Q6H PRN Pain, 01/03/24 Moderate(Pain Scale 4-6) #0 tabs nicotine (polacrilex) 4 mg buccal 4 mg buccal Q2H PRN Nicotine 01/03/24 lozenge cravings #110 ea trazodone 50 mg tablet 50 mg PO BEDTIME PRN Insomnia #30 01/03/24 tabs Mental Status Exam Mental Status Exam Patient Appearance: Appropriate Patient Orientation: Person, Place and Situation Level of Consciousness: Alert Patient Behavior: Talkative Mood Description: Constricted Affect Description: Constricted Patient Cognition Impaired: No Ability to Follow Directions: Fair Speech Pattern: Spontaneous Speech Memory Description: Episodic Impaired Hallucinations: None Delusions: Not Present Thought Process: Distracted Thought Content: positive for Perseveration, positive for Suicidal Ideation (denies) and positive for Homicidal Ideation (denies) Depressive Symptoms: Sleeping More Than Usual and Thoughts of /Suicide (denies) Judgement: Fair DS: Summary Hospital Course Hospital Course: Admission to adult psychiatry for exacerbation of schizoaffective disorder, PTSD. Pt reporting psychotic sx along with SI/HI prior to admission. Once on the unit, pt remained regressed and needed significant time to recompensate. Section Seven was filed. Pt was only intermittent in taking medications. Family asked that [facility] not proceed with court commitment. Pt did slowly recompensate and will return to her family and out patient providers in her area. Status at Discharge Functional status at discharge: independent ambulation Overall status at discharge: patient is progressing back to baseline Time Spent with Patient Time attestation: Total time managing care of this patient today ____ minutes. Time spent: Less than 30 minutes Discharge Plan Discharge Anticipated Discharge Date/Time: 01/04/24 12:00 Patient Disposition: Home, Self-Care Discharge Diagnosis: PTSD Schizoaffective Disorder Referrals: [facility] [Other] - 3-5 Days ([facility] is the closest [facility] to your home and they offer various locations. The [place] office is the closest. You will need to walk in and request a same day intake appt as soon as possible to secure a psychiatry appt. ) Physician,None [Primary Care Provider] - (Please call the hospital and ask for medical records if you would like your records forwarded to your primary care provider in future. ) Discharge Medications: New acetaminophen 325 mg Tablet 650 mg PO Q6H PRN (Reason: Headache/Pain Mild Scale (1-3)) Qty: 0 0RF ibuprofen 400 mg Tablet 400 mg PO Q6H PRN (Reason: Pain, Moderate(Pain Scale 4-6)) Qty: 0 0RF nicotine (polacrilex) 4 mg Lozenge 4 mg buccal Q2H PRN (Reason: Nicotine cravings) Qty: 110 0RF Continued atorvastatin 80 mg Tablet 80 mg PO DAILY clopidogrel 75 mg Tablet 75 mg PO DAILY aspirin 81 mg Tablet,Delayed Release (Dr/Ec) 81 mg PO DAILY lorazepam 0.5 mg Tablet 0.5 mg PO DAILY PRN (Reason: Anxiety) divalproex 250 mg Tablet,Delayed Release (Dr/Ec) 250 mg PO DAILY Qty: 30 0RF trazodone 50 mg Tablet 50 mg PO BEDTIME PRN (Reason: Insomnia) Qty: 30 0RF buspirone 10 mg Tablet 10 mg PO BID Qty: 60 0RF haloperidol 10 mg Tablet 10 mg PO BEDTIME Qty: 30 0RF Discontinued atorvastatin 80 mg Tablet 80 mg PO BEDTIME nicotine (polacrilex) 2 mg Gum 2 mg BUCCAL Q1H sertraline 50 mg Tablet 50 mg PO BEDTIME Discharge Orders: Discharge Order (Routine); Ordered 01/04/24 Ordered By: Amanda Zayas Diet: Advance to usual diet Activity on Discharge: As tolerated Stand Alone Forms: Patient Portal Discharge page, Community Support Print Language: Kosovan Care Plan Goals: Mood and Behavioral Stabilization Health Concerns: Mood and Behavioral Stabilization Plan of Treatment: Attend scheduled appointments Take medications as directed Assessment: Scheduled discharge Discharge Date/Time: 01/04/24 11:47
== END 2024-01-04 11:47 | disposition home or self-care (01) | DRG 750 ==
PROVIDERS: Admitting Provider Clinical Nurse Specialist Psychiatric/Mental Health, Adult; Visit Provider Clinical Nurse Specialist Psychiatric/Mental Health, Adult
DX: F25.9 Schizoaffective disorder, unspecified (principal); E78.2 Mixed hyperlipidemia; F17.210 Nicotine dependence, cigarettes, uncomplicated; F43.10 Post-traumatic stress disorder, unspecified; I25.10 Atherosclerotic heart disease of native coronary artery without angina pectoris; Z71.6 Tobacco abuse counseling; Z79.82 Long term (current) use of aspirin; Z79.02 Long term (current) use of antithrombotics/antiplatelets; Z79.899 Other long term (current) drug therapy

== ENCOUNTER → 2023-12-26 22:30 | Outpatient (BNV) | payer OTHER, SELFPAY | PROVIDERS: Admitting Provider Clinical Nurse Specialist Psychiatric/Mental Health, Adult; Visit Provider Clinical Nurse Specialist Psychiatric/Mental Health, Adult | DX: F25.1 Schizoaffective disorder, depressive type (principal); F43.11 Post-traumatic stress disorder, acute | CPT/HCPCS: 90792; 99231; 99232; 99238 ==

== ENCOUNTER → 2023-12-26 22:30 | Outpatient (BNV) | payer MEDICAID, SELFPAY | PROVIDERS: Admitting Provider Clinical Nurse Specialist Psychiatric/Mental Health, Adult; Visit Provider Student in an Organized Health Care Education/Training Program | DX: Z02.2 Encounter for examination for admission to residential institution (principal) | CPT/HCPCS: 99429 ==